=== PATIENT | male | born 1955 | race Caucasian/White ===

== ENCOUNTER 2021-08-30 08:52 | Day surgery (SDC) | payer MEDICARE ==
[2021-08-30] MEDS ORDERED: ZOCOR20 MG PO (09:32)
[2021-08-30] MEDS ORDERED: HYDCHL25 PO (09:33)
[2021-08-30] MEDS ORDERED: METF500 PO (09:33)
[2021-08-30] MEDS ORDERED: METO25ER PO (09:33)
[2021-08-30] MEDS ORDERED: NITR.4SL SL (09:34)
[2021-08-30] MEDS ORDERED: WARF5 PO (09:34)
--- NOTE | 2021-08-30 09:45 | NUR ---
LINQ PLACED BY DR SARAH Glover UPPER CHEST AREA. PT TOLERATED PROCEDURE WELL.
== END 2021-08-30 22:57 | disposition home or self-care (01) ==
LOC: MHTC 08:52
DX: R55 Syncope and collapse (principal)
CPT/HCPCS: 33285; C1764

== ENCOUNTER → 2023-05-31 | Outpatient (CLI) | payer OTHER ==
[~2023-05-31] MED LIST: HYDCHL25 PO; METF500 PO; METO25ER PO; NITR.4SL SL; WARF5 PO; ZOCOR20 MG PO
[2023-05-31 11:17] LABS: International Normalized Ratio 2.07; Prothrombin Time Results 20.9 Sec (9.7-11.5)
== END ==
LOC: LAB SHORT 09:15 → LAB 09:15
PROVIDERS: Family Medicine
DX: Z51.81 Encounter for therapeutic drug level monitoring (principal); I48.91 Unspecified atrial fibrillation
CPT/HCPCS: 85610

== ENCOUNTER → 2023-06-28 | Outpatient (CLI) | payer OTHER ==
[2023-06-28 15:45] LABS: BASOPHILS ABSOLUTE AUTO 0.02 K/mm3 (0.00-0.23); BASOPHILS PERCENT AUTO 0 % (0-2); EOSINOPHILS ABSOLUTE AUTO 0.22 K/mm3 (0.00-0.68); EOSINOPHILS PERCENT AUTO 4 % (0-6); Hematocrit 46.7 % (37.0-53.0); Hemoglobin 15.9 g/dL (13.5-17.5); IMMATURE GRAN ABSOLUTE AUTO 0.01 K/mm3 (0.00-0.10); IMMATURE GRAN PERCENT AUTO 0 % (0-1); LYMPHOCYTES ABSOLUTE AUTO 1.48 K/mm3 (0.84-5.20); LYMPHOCYTES PERCENT AUTO 27 % (21-46); MONOCYTES ABSOLUTE AUTO 0.54 K/mm3 (0.16-1.47); MONOCYTES PERCENT AUTO 10 % (4-13); Mean Corpuscular HGB 30.7 pg (26.0-34.0); Mean Corpuscular Volume 90 fL (80-100); Mean Platelet Volume 11.9 fL (9.1-12.4); NEUTROPHILS ABSOLUTE AUTO 3.31 K/mm3 (1.96-9.15); NEUTROPHILS PERCENT AUTO 59 % (41-73); Platelet Count 210 K/mm3 (150-400); RDW Coefficient Variation 12.4 % (11.7-14.2); Red Blood Cell Count 5.18 M/mm3 (4.30-5.90); White Blood Cell Count 5.58 K/mm3 (4.00-11.30)
[2023-06-28 15:57] LABS: International Normalized Ratio 2.79; Prothrombin Time Results 27.6 Sec (9.7-11.5)
[2023-06-28 17:47] LABS: Alanine Aminotransfer (ALT/SGP 31 U/L (12-78); Albumin, Blood 4.1 g/dL (3.4-5.0); Albumin/Globulin Ratio 1.1 (0.8-1.8); Alk Phos 45 U/L (50-136); Anion Gap 8 mmol/L (6-16); Aspartate Aminotrans (AST/SGOT 25 U/L (12-37); Bilirubin, Total 0.7 mg/dL (0.1-1.0); Blood Urea Nitrogen 19 mg/dL (8-24); Bun/Creatinine Ratio 21.4 (12.0-20.0); CHOL/HDL RATIO 3.5; CO2, Blood 26 mmol/L (21-32); Calcium, Blood 9.4 mg/dL (8.5-10.1); Chloride, Blood 106 mmol/L (98-108); Cholesterol 117 mg/dL (50-200); Creatinine, Blood 0.89 mg/dL (0.60-1.20); Globulin, Blood 3.6 g/dL (2.2-4.0); Glomerular Filtration Rate 93 (60-); Glucose, Blood 132 mg/dL (70-99); HDL Cholesterol 33 mg/dL (>39); LDL/HDL RATIO 1.9; Low Density Lipoprotein Chol 64 mg/dL (0-110); Potassium, Blood 4.3 mmol/L (3.5-5.5); Sodium, Blood 140 mmol/L (136-145); Total Protein, Blood 7.7 g/dL (6.4-8.2); Triglycerides 100 mg/dL (30-160); Very Low Density Lipoprot Chol 20 mg/dL (6-32)
== END | disposition home or self-care (01) ==
LOC: LAB 14:28 → LAB SHORT 14:28
PROVIDERS: Family Medicine
DX: Z13.29 Encounter for screening for other suspected endocrine disorder (principal); E11.21 Type 2 diabetes mellitus with diabetic nephropathy; E11.42 Type 2 diabetes mellitus with diabetic polyneuropathy; E11.69 Type 2 diabetes mellitus with other specified complication; E11.51 Type 2 diabetes mellitus with diabetic peripheral angiopathy without gangrene; I48.11 Longstanding persistent atrial fibrillation; E78.49 Other hyperlipidemia
CPT/HCPCS: 80053; 80061; 83036; 84443; 85025; 85610

== ENCOUNTER → 2023-07-27 | Outpatient (CLI) | payer OTHER ==
[2023-07-27 18:24] LABS: International Normalized Ratio 3.03; Prothrombin Time Results 29.9 Sec (9.7-11.5)
== END ==
LOC: LAB SHORT 10:12 → LAB 10:12
PROVIDERS: Family Medicine
DX: I48.11 Longstanding persistent atrial fibrillation (principal)
CPT/HCPCS: 85610